=== PATIENT | female | born 1990 | race Hispanic/Latino ===

== ENCOUNTER 2018-03-10 20:58 | Emergency (ER) | payer OTHER ==
[2018-03-10 21:12] VITALS: TEMP 97.9
[2018-03-10] MEDS ORDERED: Sodium Chloride 0.9% 1,000 ML IV ONE (21:27)
[2018-03-10 21:55] LABS: BASO % 0.4 % (0.0-2.0); EOS % 0.5 % (0.0-4.0); HEMOGLOBIN 13.2 g/dL (11.0-16.0); LYMPH # 1.8 K/uL (1.0-4.3); LYMPH % 16.4 % (20.0-40.0); MEAN CELL VOLUME 84.3 fL (81.0-99.0); MEAN CORPUSCULAR HEMOGLOBIN 28.1 pg (27.0-31.0); MEAN CORPUSCULAR HGB CONC 33.4 g/dL (33.0-37.0); MEAN PLATELET VOLUME 7.3 fL (7.2-11.7); MONO # 0.4 K/uL (0.0-0.8); MONO % 3.9 % (0.0-10.0); NEUT # 8.6 K/uL (1.8-7.0); NEUT % 78.8 % (50.0-75.0); NRBC % 0.1 % (0.0-2.0); RBC 4.7 Mil/uL (3.80-5.20); WHITE BLOOD COUNT 10.9 K/uL (4.8-10.8)
[2018-03-10 22:04] LABS: HCG,QUALITATIVE URINE NEGATIVE (NEGATIVE)
[2018-03-10 22:11] LABS: SQUAMOUS EPITHIAL 1 /hpf (0-5); URINE BACTERIA RARE (<OCC); URINE BILIRUBIN NEGATIVE (NEGATIVE); URINE BLOOD NEGATIVE (NEGATIVE); URINE CLARITY Clear (Clear); URINE COLOR Yellow (YELLOW); URINE GLUCOSE (UA) NORMAL (Normal); URINE LEUKOCYTE ESTERASE NEG Leu/uL (Negative); URINE PROTEIN NEGATIVE (NEGATIVE); URINE UROBILINOGEN NORMAL mg/dL (0.2-1.0)
[2018-03-10 22:12] LABS: ALB/GLOB RATIO 1.3 (1.0-2.1); ALBUMIN 4.3 g/dL (3.5-5.0); ALT/SGPT 50 U/L (9-52); AST/SGOT 36 U/L (14-36); BLOOD UREA NITROGEN 14 mg/dL (7-17); CALCIUM 9.1 mg/dl (8.6-10.4); GFR NON-AFRICAN AMERICAN > 60
[2018-03-10 22:22] LABS: BARBITURATES, UR NEGATIVE (NEGATIVE); BENZODIAZEPINES, UR NEGATIVE (NEGATIVE); OPIATES, UR NEGATIVE (NEGATIVE); PHENCYCLIDINE, UR NEGATIVE (NEGATIVE)
[2018-03-10 22:46] VITALS: BP 103/68; PULSE 61; RESP 16; O2SAT 100
--- NOTE | 2018-03-10 22:54 | C.PDOC ---
History Of Present Illness 27 y/o female with no PMHx, brought in by ambulance for evaluation s/p seizure. Patient reports that while in the kitchen preparing food, she suddenly lost consciousness, and next remembers waking up to EMS entering apartment. Reuben reports that he was in the living room, suddenly heard an abnormal yell, and found patient on the kitchen floor having generalized tonic-clonic movements, which lasted about 2 mins. Patient was noted to be drooling, with her head turned to the side. This was followed by 2-3 mins of unresponsiveness after which patient slowly came to. Patient did sustain an abrasion on her tongue. She denies any urinary incontinence. Currently patient reports feeling somewhat weak with a mild headache. Denies recent stress, lack of sleep, or excessive caffeine/alcohol use Reports 2 weeks ago stopped taking control pills after being on them for about 10 years. PMD: None Time Seen by Provider: 03/10/18 21:16 Chief Complaint (Nursing): Seizure History Per: Patient History/Exam Limitations: no limitations Recent Seizure Activity Began: Just Before Arrival Number Of Seizures: One Length Of Seizures (Duration): Minutes (x2) Quality Of Seizure: Generalized Associated Symptoms: Bit Tongue Additional History Per: Family (F[place]ris) Past Medical History Reviewed: Historical Data, Nursing Documentation, Vital Signs Vital Signs: Last Vital Signs Temp 97.9 F 03/10/18 21:05 Pulse 61 03/10/18 22:45 Resp 16 03/10/18 22:45 BP 103/68 03/10/18 22:45 Pulse Ox 100 03/10/18 22:45 Surgical History: No Surg Hx Family History: States: No Known Family Hx - Social History Hx Tobacco Use: No Hx Alcohol Use: Yes (social) Hx Substance Use: No - Immunization History Hx Tetanus Toxoid Vaccination: Yes Hx Influenza Vaccination: No Hx Pneumococcal Vaccination: No Review Of Systems Except As Marked, All Systems Reviewed And Found Negative. Constitutional: Positive for: Weakness (generalized). Negative for: Fever Eyes: Negative for: Vision Change Cardiovascular: Negative for: Chest Pain, Light Headedness Respiratory: Negative for: Shortness of Breath Gastrointestinal: Negative for: Vomiting, Abdominal Pain Genitourinary: Negative for: Incontinence Skin: Positive for: Other (+ bit tongue) Neurological: Positive for: Seizures, Headache (mild). Negative for: Weakness, Numbness, Change in Speech, Dizziness Physical Exam - Physical Exam Appears: Non-toxic, No Acute Distress, Other (Tired appearing) Skin: Normal Color, Warm Head: Atraumatic, Normacephalic Eye(s): bilateral: Normal Inspection, PERRL, EOMI Oral Mucosa: Moist Tongue: Other (Superficial tongue abrasion to the right lateral tongue, hemostatic) Neck: Normal ROM, Supple Chest: Symmetrical Cardiovascular: Rhythm Regular, No Murmur Respiratory: Normal Breath Sounds, No Accessory Muscle Use Gastrointestinal/Abdominal: Soft, No Tenderness Back: Normal Inspection, No Vertebral Tenderness, No Paraspinal Tenderness Extremity: Normal ROM, No Pedal Edema, No Deformity Neurological/Psych: Oriented x3, Normal Speech, Normal Cranial Nerves (CN 2-12 intact), Cerebellar Signs (normal), Normal Motor, Normal Sensation, Other ( Normal mood/affect) Gait: Steady ED Course And Treatment - Laboratory Results Result Diagrams: 03/10/18 22:01 03/10/18 21:50 O2 Sat by Pulse Oximetry: 100 (RA) Pulse Ox Interpretation: Normal Medical Decision Making Medical Decision Making: Impression: New onset seizure Plan: --EKG --CT Head --Blood work --UA --IV fluids --Reeval Discussed w/ Dr. French, who recommends that if labs and CT scan are negative, patient can be discharged with outpatient follow up for further evaluation for seizures. Name: ASHLEY PEREZ Exam Date: Mar 10, 2018 9:43:43 PM EDT Modality Type: CT Description: CT - BRAIN WITH CORONAL AND SAGITTAL MPRS Gender: F Laterality: Not applicable : 86 Referring Physician: Carey Delgado EXAM: CT Head without Intravenous Contrast. CLINICAL HISTORY: POST OP SEIZURE TECHNIQUE: Axial computed tomography images of the head/brain without intravenous contrast. 944.00 mGy-cm COMPARISON: None provided. FINDINGS: BRAIN Cerebral hemispheres: Normal live-white matter pattern No acute intracranial hemorrhage. No midline shift VENTRICLES: No hydrocephalus. ORBITS: The orbits are unremarkable. SINUSES AND MASTOIDS: The paranasal sinuses and mastoid air cells are clear. BONES: No fracture. SOFT TISSUES: Unremarkable. MISCELLANEOUS: No vascular territorial edema identified. IMPRESSION: 1. Cerebral hemispheres: Normal live-white matter pattern 2. No acute intracranial hemorrhage. 3. No vascular territorial edema identified. 4. No midline shift Counseled patient regarding imaging and lab results. Patient remains AAOx3, with clear speech, ambulatory, in no distress. Will discharge patient home, instructed on the importance of follow up. Disposition Counseled Patient/Family Regarding: Studies Performed, Diagnosis, Need For Followup - Disposition Referrals: Jairo French MD [Staff Provider] - (CALL TOMORROW TO SETUP FOLLOWUP APPOINTMENT BY END OF WEEK) Disposition: HOME/ ROUTINE Disposition Time: 23:15 Condition: GOOD Additional Instructions: DO NOT DRIVE OR OPERATE MACHINERY UNTIL YOU COMPLETE YOUR SEIZURE EVALUATION WITH THE NEUROLOGIST RETURN TO ER FOR RECURRENCE OF SEIZURE OR ANY OTHER WORRISOME SYMPTOMS DRINK PLENTY OF HYDRATING FLUIDS, MAINTAIN GOOD NUTRITION, AND AVOID ALCOHOL AND EXCESSIVE CAFFEINE INTAKE. Instructions: Seizures, Adult (DC) Forms: Work Excuse - Clinical Impression Clinical Impression: Seizure - Scribe Statement The provider has reviewed the documentation as recorded by the Scribe Shraddha Menezes Provider Attestation: All medical record entries made by the Scribe were at my direction and personal ly dictated by me. I have reviewed the chart and agree that the record accurately reflects my personal performance of the history, physical exam, medical decision making, and the department course for this patient. I have also personally directed, reviewed, and agree with the discharge instructions and disposition.
--- NOTE | 2018-03-11 07:59 | CT ---
Date of service: 03/10/2018 PROCEDURE: CT HEAD WITHOUT CONTRAST. HISTORY: new onset seizure COMPARISON: None available. TECHNIQUE: Axial computed tomography images were obtained through the head/brain without intravenous contrast. Radiation dose: Total exam DLP = 944.0 mGy-cm. This CT exam was performed using one or more of the following dose reduction techniques: Automated exposure control, adjustment of the mA and/or kV according to patient size, and/or use of iterative reconstruction technique. FINDINGS: HEMORRHAGE: No intracranial hemorrhage. BRAIN: No mass effect or edema. No atrophy or chronic microvascular ischemic changes. VENTRICLES: Unremarkable. No hydrocephalus. CALVARIUM: Unremarkable. PARANASAL SINUSES: Unremarkable as visualized. No significant inflammatory changes. MASTOID AIR CELLS: Unremarkable as visualized. No inflammatory changes. OTHER FINDINGS: None. IMPRESSION: No acute intracranial abnormality. If symptoms persists, consider correlation with MRI. A preliminary report was generated at 10:56 p.m. on 03/10/[address] Deven Segundo from [facility].
== END 2018-03-10 23:30 | disposition home or self-care (01) ==
LOC: C.ER 20:58
DX: R56.9 Unspecified convulsions (principal)
CPT/HCPCS: 70450; 80053; 80320; 80324; 80345; 80346; 80349; 80353; 80358; 80361; 81001; 82550; 82948; 83605; 83735; 83992; 84100; 84703; 85025; 94770; 96360; 99285; J7030